=== PATIENT | female | born 1935 | race Asian ===

== ENCOUNTER → 2021-01-17 13:47 | Outpatient (CLI) | payer MEDICARE, OTHER, SELFPAY ==
--- NOTE | 2021-01-17 | DI.CT.S_ITS ---
PROCEDURE: CT SINUS SCREEN WO CON INDICATIONS: Chronic pansinusitis TECHNIQUE: Noncontrast 3.0 mm axial images acquired from the frontal sinuses to the mid-sella, with coronal and sagittal reformats. For radiation dose reduction, the following was used: automated exposure control, adjustment of mA and/or kV according to patient size. COMPARISON: None. FINDINGS: Image quality: Excellent. Maxillary Sinuses: No bony remodeling or destruction. Xoga-ep-rxxaxzir mucosal thickening is seen involving the maxillary sinuses, right worse than left. Ethmoid Air Cells: No bony remodeling or destruction. Moderate mucosal thickening can be seen within the ethmoid air cells, which is most prominent on the right anteriorly Sphenoid Sinuses: No bony remodeling or destruction. Sinuses are clear. Frontal Sinuses: No bony remodeling or destruction. Sinuses are clear. Ostiomeatal Complexes: The ostiomeatal complexes appear demineralized. There constitutionally narrowed, with bilateral Sami cells, right more prominent than left. There further narrowed by soft tissue thickening. Miscellaneous: Visualized intra-orbital contents are normal. No gabriella bullosa or paradoxical turbinate curvature. There is minimal to mild leftward nasal septal deviation. Volume loss can be seen involving the left cerebral hemisphere, as on series 3, image 35. IMPRESSION: Multifocal paranasal sinus disease can be seen. The ostiomeatal complexes are narrowed and demineralized. Apparent remote left cerebral hemisphere infarction. Dictated by: Dewey Solorio M.D. on 01/17/2021 at 13:31 Approved by: Dewey Solorio M.D. on 01/17/2021 at 13:33
== END ==
PROVIDERS: PCP Internal Medicine; Referring Provider Otolaryngology; Visit Provider Otolaryngology
DX: J32.4 Chronic pansinusitis (principal); R51.9 Headache, unspecified; R09.82 Postnasal drip
CPT/HCPCS: 70486

== ENCOUNTER 2022-04-28 12:05 | Emergency (ER) | payer MEDICARE, SELFPAY ==
[2022-04-28 12:13] VITALS: BP 181/77; PULSE 96; RESP 18; TEMP 36.7; O2SAT 96
[2022-04-28 13:35] VITALS: BP 176/79; PULSE 86; RESP 18; O2SAT 94
[2022-04-28 14:00] VITALS: BP 148/66; PULSE 82; RESP 18; O2SAT 95
--- NOTE | 2022-04-28 14:13 | DI.CT.S_ITS ---
PROCEDURE: CT ABDOMEN PELVIS WO CON INDICATIONS: Constipation, eval for obstruction TECHNIQUE: Axial sections were acquired from the lung bases to the pubic symphysis. Coronal and sagittal reformats were performed. For radiation dose reduction, the following was used: automated exposure control, adjustment of mA and/or kV according to patient size. COMPARISON: None. FINDINGS: Image quality: Excellent. Lung bases: Unremarkable. Heart: Enlarged. URINARY: Right Kidney: No stones or hydronephrosis. Right Ureter: No hydroureter. Left Kidney: No stones or hydronephrosis. Left Ureter: No hydroureter. Bladder: Normal wall thickness. No stones. ABDOMEN: Liver: Mild pedis steatosis is present. Gallbladder: Removed. Biliary ducts: Unremarkable. Pancreas: Unremarkable. Spleen: Unremarkable. Adrenal Glands: Unremarkable. Stomach and Bowel: Stomach, small bowel loops, and colon are nonobstructive. Significant colonic stool is present. Peritoneum: No abnormal intraperitoneal fluid. No free air. Ventral Wall: No hernia. Abdominal Nodes: No enlarged retroperitoneal or mesenteric lymph nodes. Vessels: Aorta and inferior vena cava are normal in size. PELVIS: Pelvic Organs: Unremarkable. Pelvic Nodes: Unremarkable. Miscellaneous: No inguinal hernias are seen. Bones: Unremarkable. IMPRESSION: Prominent colonic stool consistent with constipation. No obstruction. Cholecystectomy. Dictated by: Moon Ryan M.D. on 04/28/2022 at 16:36 Approved by: Moon Ryan M.D. on 04/28/2022 at 16:37
--- NOTE | 2022-04-28 14:13 | ED.GENADULT ---
HPI - General Adult General Chief complaint: Abdominal Pain Stated complaint: Constipation Time Seen by Provider: 04/28/22 14:08 Source: patient Mode of arrival: Ambulatory History of Present Illness HPI narrative: 87-year-old female who was sent to the emergency department by her primary doctor for evaluation of constipation. Patient states that she has not had a bowel movement the past 4 days. It appears she has taken 2 different doses of laxatives over this time. She is only had a small bowel movement since then. She does feel like her abdomen is distended. She denies prior history of abdominal surgeries. She does have problems urinating but this is baseline for her. No vomiting. Has generalized abdominal tenderness. Related Data Allergies Allergy/AdvReac Type Severity Reaction Status Date / Time No Known Drug Allergies Allergy Verified 04/28/22 12:22 Review of Systems Constitutional Constitutional: Reports system reviewed and no additional complaints, except as documented Cardiovascular Cardiovascular: Denies chest pain and Denies dyspnea Respiratory Respiratory: Denies dyspnea Gastrointestinal Gastrointestinal: Reports system reviewed and no additional complaints, except as documented Genitourinary Genitourinary: Reports system reviewed and no additional complaints, except as documented Integumentary/Breasts Skin/Breast: Reports system reviewed and no additional complaints, except as documented Hematologic/Lymphatic On Anticoagulants: No Patient History Social History Smoking Status: Never smoker Smoking Status: Never smoker Exam Initial Vital Signs Initial Vital Signs: Vital Signs Temperature 98.1 F 04/28/22 12:13 Pulse Rate 96 H 04/28/22 12:13 Respiratory Rate 18 04/28/22 12:13 Blood Pressure 181/77 H 04/28/22 12:13 Pulse Oximetry 96 04/28/22 12:13 Oxygen Delivery Method 04/28/22 12:13 Const General: cooperative, healthy appearing and comfortable Resp Effort & Inspection: normal respiratory effort Auscultation: clear to auscultation bilaterally Cardio Rate: regular rate Rhythm: regular rhythm GI Inspection: distended Palpation: soft, No firm and No guarding Neuro General: patient alert and patient awake Extrem General: normal to inspection and capillary refill normal Psych Appearance: grossly normal and well kempt Course Orders Ordered: ED Orders 04/28/22 14:13 CT abdomen pelvis wo con Stat Vital Signs Vital signs: Vital Signs - 8 hr 04/28/22 12:13 04/28/22 13:35 04/28/22 13:35 Temperature 98.1 F Pulse Rate 96 H 86 Respiratory Rate 18 18 Blood Pressure 181/77 H 176/79 H Pulse Oximetry 96 94 Oxygen Delivery Method Room Air 04/28/22 14:00 04/28/22 14:00 04/28/22 15:52 Temperature Pulse Rate 82 80 Respiratory Rate 18 18 Blood Pressure 148/66 H 140/66 Pulse Oximetry 95 98 Oxygen Delivery Method Medical Decision Making Imaging Data CT scan - abdomen/pelvis: Radiologist's Impression: [address] [address] [address] Scan Report Signed Patient: Herve Garvey MR#: [id number] : 1935 Acct:[id number] Age/Sex: 87 / F Date of Service: 04/28/22 Loc: ED Accession Number: [id number] ?? Procedure: CT abdomen pelvis wo con Ordering Provider: Geovanni Kelly D.O. PROCEDURE:? CT ABDOMEN PELVIS WO CON ? INDICATIONS:? Constipation, eval for obstruction ? TECHNIQUE:? Axial sections were acquired from the lung bases to the pubic symphysis.? Coronal and sagittal reformats were performed.? For radiation dose reduction, the following was used: ?automated exposure control, adjustment of mA and/or kV according to patient size.? ? COMPARISON:? None. ? FINDINGS:? Image quality:? Excellent.? ? Lung bases:? Unremarkable.? ? Heart:? Enlarged. ? URINARY: Right Kidney: ? No stones or hydronephrosis.? Right Ureter:? No hydroureter.? ? Left Kidney: ? No stones or hydronephrosis. Left Ureter:? No hydroureter.? ? Bladder:? Normal wall thickness. No stones. ? ? ? ABDOMEN: Liver:? Mild pedis steatosis is present. Gallbladder:? Removed.? ? Biliary ducts:? Unremarkable.? ? Pancreas:? Unremarkable.? ? Spleen:? Unremarkable.? ? Adrenal Glands:? Unremarkable.? ? ? Stomach and Bowel:? Stomach, small bowel loops, and colon are nonobstructive.? Significant colonic stool is present. Peritoneum:? No abnormal intraperitoneal fluid.? No free air.? ? Ventral Wall: ? No hernia.? Abdominal Nodes:? No enlarged retroperitoneal or mesenteric lymph nodes.? Vessels:? Aorta and inferior vena cava are normal in size.? ? PELVIS: Pelvic Organs:? Unremarkable.? ? Pelvic Nodes: Unremarkable. Miscellaneous: No inguinal hernias are seen. ? ? ? Bones:? Unremarkable. ? IMPRESSION:? ? Prominent colonic stool consistent with constipation.? No obstruction. ? Cholecystectomy. ? ? Dictated by: Moon Ryan M.D. on 04/28/2022 at 16:36 ? ? Approved by: Moon Ryan M.D. on 04/28/2022 at 16:37?? MDM Narrative Medical decision making narrative: She does have a benign abdominal exam. CT scan shows no signs of surgical pathology. She does have findings that are consistent with constipation. Patient's son arrived at bedside. He states that every so often she does get this way. No indication for admission in the hospital. We did discuss the use of laxatives at home. We discussed return precautions and follow-up instructions. Patient and her son expressed understanding and agreement. Discharge Plan Departure Patient Disposition: Home Clinical Impression: Constipation Instructions: DI for Constipation Activity Restrictions/Additional Instructions: The CT scan today was consistent with constipation. There was no signs of obstructions. I do recommend that you start taking a laxative such as MiraLax. You can take this multiple times a day like we discussed. Contact your primary doctor for a follow-up. Return to the emergency department for any new or worsening season. Referrals: Brennan Zapata MD [Primary Care Provider] - Visit Report Forms: Patient Portal/API
--- NOTE | 2022-04-28 15:51 | PC.NURSE ---
son at bs. 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
[2022-04-28 15:52] VITALS: BP 140/66; PULSE 80; RESP 18; O2SAT 98
== END 2022-04-28 16:53 | disposition home or self-care (01) ==
PROVIDERS: Emergency Provider Emergency Medicine; PCP Internal Medicine
DX: K59.00 Constipation, unspecified (principal)
CPT/HCPCS: 74176; 99283

== ENCOUNTER → 2022-10-18 12:55 | Outpatient (CLI) | payer MEDICARE, SELFPAY ==
--- NOTE | 2022-10-18 | DI.MRI.S_ITS ---
PROCEDURE: MR LUMBAR SPINE WO CON INDICATIONS: spinal stenosis TECHNIQUE: Noncontrast sagittal T1 spin echo and T2 fast echo, sagittal STIR, and T2 fast spin echo through the lumbar spine. In cases with scoliosis, additional coronal T2 fast spin echo may be performed. COMPARISON: None. FINDINGS: Image quality: Excellent. Alignment and Curvature: There is normal bony alignment. Bone Marrow: Marrow is of normal overall signal. No acute vertebral body compression fractures. Spinal Cord: Conus medullaris terminates at the L1 level. Visualized cord demonstrates normal signal and size. Paraspinous Soft Tissues: No paravertebral masses. [id number] cysts are partially imaged in the kidneys bilaterally. There is grade 2 fatty infiltration of the paraspinous musculature. T12-L1: Disc desiccation and mild circumferential disc bulging without significant spinal canal stenosis or neural foraminal narrowing. L1-L2: Mild disc desiccation and circumferential disc bulging without significant spinal canal stenosis or neural foraminal narrowing. L2-L3: Disc desiccation and moderate circumferential disc bulging as well as mild bilateral facet hypertrophy, which result in mild to moderate narrowing of the spinal canal as well as mild to moderate left and mild right neural foraminal narrowing. L3-L4: Disc desiccation and mild circumferential disc bulging with mild bilateral facet hypertrophy and buckling of the ligamentum flavum, which result in moderate narrowing of the spinal canal as well as mild bilateral neural foraminal narrowing. L4-L5: Disc desiccation and loss of disc space height with moderate circumferential disc bulging and, moderate facet hypertrophy, and buckling of the ligamentum flavum, which results and moderate narrowing of the spinal canal as well as moderate left and moderate to severe right neural foraminal narrowing. L5-S1: Mild disc desiccation and njal-kz-pdeuxica bilateral neural foraminal narrowing, which result in mild bilateral neural foraminal narrowing without significant spinal canal stenosis. IMPRESSION: 1. At L4-5, there is moderate to severe right neural foraminal narrowing and moderate left neural foraminal narrowing as well as moderate narrowing of the spinal canal. 2. At L3-4, there is moderate narrowing of the spinal canal and mild bilateral neural foraminal narrowing. 3. Additional multilevel degenerative disc disease and facet hypertrophy as described in detail in the body of the report, resulting in multilevel were-ny-ieyvixwb neural foraminal narrowing and spinal canal stenosis. No high-grade spinal canal stenosis at any level. Approved by: Jamie Torres M.D. on 10/19/2022 at 11:13
== END ==
PROVIDERS: PCP Internal Medicine; Referring Provider Orthopaedic Surgery; Visit Provider Orthopaedic Surgery
DX: M48.062 Spinal stenosis, lumbar region with neurogenic claudication (principal); M51.36 Other intervertebral disc degeneration, lumbar region
CPT/HCPCS: 72148

== ENCOUNTER 2024-11-10 13:44 | Emergency (ER) | payer MEDICARE, SELFPAY ==
[2024-11-10] VITALS (14 sets, daily range): BP systolic 125–154; BP diastolic 60–71; PULSE 85–98; RESP 16–18; TEMP 36.9; O2SAT 93–97
--- NOTE | 2024-11-10 14:01 | DI.RAD.S_ITS ---
PROCEDURE: XR HIP W PEL IF DONE BILAT 2V INDICATIONS: fall, bilateral hip pain TECHNIQUE: AP pelvis with lateral view(s) of the right hip(s). COMPARISON: None. FINDINGS: Bones: No fractures or dislocations. Pelvic ring appears intact. No suspicious bony lesions. Soft tissues: The visualized bowel gas pattern is normal. No suspicious soft tissue calcifications. IMPRESSION: No acute osseous abnormality. If pain persists with conservative management, consider repeat x-ray in 10-14 days or cross-sectional imaging. Dictated by: lBaine Stubbs M.D. on 11/10/2024 at 14:41 Approved by: Blaine Stubbs M.D. on 11/10/2024 at 14:42
--- NOTE | 2024-11-10 14:03 | DI.CT.S_ITS ---
PROCEDURE: CT HEAD/BRAIN WO CON INDICATIONS: fall, unwitnessed, confused TECHNIQUE: Noncontrast 4.5 mm thick angled axial sections acquired from the foramen magnum to the vertex, with coronal and sagittal reformats. For radiation dose reduction, the following was used: automated exposure control, adjustment of mA and/or kV according to patient size. COMPARISON: None. FINDINGS: Image quality: Diagnostic. CSF spaces: Basal cisterns are patent. No extra-axial fluid collections. Ex vacuo dilatation of the left lateral ventricle. Brain: Encephalomalacia within the left frontal lobe. Small lacunar infarct in the left cerebellar hemisphere. No intracranial bleeds or masses. There is cerebral volume loss for age, with resultant ventricular and sulcal prominence. There are periventricular and deep white matter chronic small vessel ischemic changes. There is intracranial internal carotid artery atherosclerosis. Skull and face: Calvarium and visualized facial bones appear intact, without suspicious lesions. Lens replacements. Sinuses: Diffuse paranasal sinus disease with near complete opacification of left maxillary sinus and left sphenoid sinus. The mastoids are clear. IMPRESSION: No acute intracranial pathology. 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 Dictated by: Blaine Stubbs M.D. on 11/10/2024 at 14:36 Approved by: Blaine Stubbs M.D. on 11/10/2024 at 14:38
--- NOTE | 2024-11-10 14:03 | DI.CT.S_ITS ---
PROCEDURE: CT CERVICAL SPINE WO CON INDICATIONS: fall, unwitnessed, confused TECHNIQUE: Noncontrast 3 mm thick sections acquired from the skull base to the T4 level. Sagittal and coronal reformats were then constructed. For radiation dose reduction, the following was used: automated exposure control, adjustment of mA and/or kV according to patient size. COMPARISON: None. FINDINGS: Image quality: Excellent. Bones: No fractures or dislocations. Degenerative changes of the cervical spine. Straightening of the normal cervical lordosis. Decreased osseous mineralization. Visualized superior ribs are intact. Soft tissues: Prevertebral soft tissues are normal in thickness. No paravertebral hematomas. No apical pneumothoraces. Fullness of the bilateral palatine tonsils. IMPRESSION: No displaced fracture or traumatic subluxation. Multilevel degenerative changes of the cervical spine. Fullness of the bilateral palatine tonsils, consider direct visualization. Dictated by: Blaine Stubbs M.D. on 11/10/2024 at 14:38 Approved by: Blaine Stubbs M.D. on 11/10/2024 at 14:41
--- NOTE | 2024-11-10 14:11 | DI.CT.S_ITS ---
PROCEDURE: CT LUMBAR SPINE WO CON INDICATIONS: fall low back pain TECHNIQUE: Noncontrast 3 mm thick sections acquired from the T12 level to the sacrum. Sagittal and coronal reformats were constructed. For radiation dose reduction, the following was used: automated exposure control. COMPARISON: None. FINDINGS: Image quality: Excellent. Bones: Mild levocurvature. No acute vertebral body compression fractures. No suspicious lytic or blastic bony lesions. No pars defects. Multilevel degenerative changes of the lumbar spine with disc height loss, vacuum disc phenomenon, facet arthropathy and osteophytosis. Decreased osseous mineralization. Soft tissues: No retroperitoneal masses or hematomas. Visualized aorta is normal in caliber. Atherosclerotic vascular calcifications. IMPRESSION: No acute osseous abnormalities. Multilevel degenerative changes of the lumbar spine. Dictated by: Blaine Stubbs M.D. on 11/10/2024 at 14:42 Approved by: Blaine Stubbs M.D. on 11/10/2024 at 14:45
--- NOTE | 2024-11-10 14:48 | DI.RAD.S_ITS ---
PROCEDURE: XR CHEST 1V INDICATIONS: fall/?dizzy TECHNIQUE: One view of the chest was acquired. COMPARISON: [facility], CT, CT LUMBAR SPINE WO CON, 11/10/2024, 14:12. [facility], CT, CT KUB, 04/01/2024, 11:57. FINDINGS: Surgical changes and devices: Curvilinear density projecting over the right lower lung field Lungs and pleura: Lungs are clear. No pleural effusions or pneumothorax. Mediastinum: Mediastinal contours appear normal. Heart size is normal. Bones and chest wall: No suspicious bony lesions. Overlying soft tissues appear unremarkable. IMPRESSION: No acute cardiopulmonary abnormality is seen. Dictated by: Blaine Stubbs M.D. on 11/10/2024 at 16:03 Approved by: Blaine Stubbs M.D. on 11/10/2024 at 16:04
--- NOTE | 2024-11-10 14:48 | EKG_ITS ---
[address] [address] Test Date: 2024-11-10 Pat Name: Herve Garvey Department: Room: Gender: Female [employer]: : 1935 Requested By: Order Number: [id number] Reading MD: Howie Gan MD Measurements Intervals [place] Rate: 91 P: -21 NV: 140 QRS: 22 QRSD: 96 T: 24 QT: 356 QTc: 437 Interpretive Statements Normal sinus rhythm Electronically Signed On 11-11-2024 7:44:38 PST by Howie Gan MD
[2024-11-10 15:15] LABS: Alanine Aminotransferase 19 IU/L (<35); Albumin 4.3 g/dL (3.5-5.0); Alkaline Phosphatase 113 U/L (38-126); Aspartate Aminotransferase 23 IU/L (14-36); BUN Creatinine Ratio 31.4 (6-22); Bilirubin Total 0.4 mg/dL (0.2-1.3); Blood Urea Nitrogen 16 mg/dL (7-17); Calcium 9.1 mg/dL (8.4-10.2); Carbon Dioxide 29 mmol/L (22-32); Chloride 95 mmol/L (98-107); Creatine Kinase 35 U/L (30-135); Estimated Glomerular Filt Rate > 60 mL/min (>60); Globulin 4.1 g/dL (1.7-4.1); HEMOLYSIS < 15 (0-50); Lipase 33 U/L (23-300); Potassium 3.7 mmol/L (3.4-5.1); Sodium 131 mmol/L (137-145); Total Protein 8.4 g/dL (6.3-8.2)
[2024-11-10 15:20] LABS: Add Manual Diff / Slide Review NO; Basophils Absolute Auto 100 /uL (0-100); Basophils Percent Auto 0.9 % (0-2); Eosinophils Absolute Auto 100 /uL (0-450); Eosinophils Percent Auto 1.7 % (2-4); Hematocrit 39.3 % (36-46); Hemoglobin 13.7 g/dL (12.0-16.0); Lymphocytes Absolute Auto 1600 /uL (1100-4500); Lymphocytes Percent Auto 18.9 % (25-40); Mean Corpuscular Hemoglobin 32.1 PG (26-34); Mean Corpuscular Volume 91.8 fL (80-100); Monocytes Absolute Auto 500 /uL (0-900); Monocytes Percent Auto 5.7 % (3-14); Neutrophils Absolute Auto 6200 /uL (1500-7000); Neutrophils Percent Auto 72.8 % (50-75); Platelet Count 332 X10^3/uL (150-400); Red Blood Cell Count 4.28 X10^6/uL (4.0-5.2); Red Cell Distribution Width 12.9 % (11.6-14.8); White Blood Cell Count 8.5 X10^3/uL (4.5-11.0)
[2024-11-10 15:23] LABS: Appearance Urine UA CLEAR; Bilirubin Urine UA NEGATIVE (NEGATIVE); Color Urine UA YELLOW; Glucose Urine UA 3+ g/dL (Negative); Ketones Urine UA NEGATIVE (NEGATIVE); Leukocyte Esterase Urine UA NEGATIVE (NEGATIVE); Nitrite Urine UA POSITIVE (Negative); Occult Blood Urine UA NEGATIVE (Negative); Protein Urine UA NEGATIVE (Negative); Specific Gravity Urine UA <=1.005 (1.000-1.035); Urobilinogen Urine UA 0.2 E.U./dL (0.2)
[2024-11-10 15:25] LABS: NT-proBNP (BNP-Adult 18+) 87 pg/mL (<450)
[2024-11-10 15:26] LABS: Glucose 504 mg/dL (80-110)
[2024-11-10 15:28] LABS: Troponin I < 0.012 ng/mL (0.01-0.034)
[2024-11-10 15:33] LABS: pH Urine UA 5.5 (4.5-8.0)
[2024-11-10 15:35] LABS: Amorphous Sediment Urine 1+; Bacteria Urine Many (>30); Culture Indicated Urine Specimen Cultured; RBC Urine None Seen (0-5/HPF); Squamous Epithelial Cell Urine 0-1 /HPF (0-5/HPF); Urine Volume 10mL (spun); WBC Urine 5-10/HPF (0-5/HPF)
[2024-11-10] MEDS: SODIUM CHLORIDE 0.9% 1,000 ML 1000 ML IV (15:49)
--- NOTE | 2024-11-10 16:23 | ED.FALL ---
HPI - Fall General Chief Complaint: Fall Stated Complaint: Fall, px in lower back Time Seen by Provider: 11/10/24 14:11 Source: patient, family (son), RN notes reviewed and old records reviewed Limitations: no limitations and language barrier History of Present Illness HPI Narrative: 89-year-old female with a history of diabetes with unwitnessed fall between around 5:00 p.m. last night. Patient lives with 2 of her sons. Patient was in the kitchen was cooking fell backwards onto her buttocks and felt a crack in her back is unsure if she hit her head but denies any loss of consciousness. Denies any headache or neck pain currently. She denies any sudden vision changes no chest pain or shortness of breath. Denies any nausea or vomiting. No new GI or urinary symptoms. Patient has not had any chest pain or shortness of breath. She has been ambulating since this happened. Her son who is at bedside states he had talked to his brother's this morning they indicated that she had had a fall so she he went over to see her her in to be evaluated she was not had persistent pain regularly but notes some discomfort in her lower back. She denies any neck or back pain currently. She notes it seems to occur when she bends over. Patient has not had any weakness or numbness or tingling in extremity since. Patient is on metformin she was supposed to take 500 mg p.o. b.i.d. but son states they recently found out she was has been taking it once daily. She has been on this medication for about 10 years. No prior surgeries. No known drug allergies. No tobacco, alcohol or recreational drugs was seeing Dr. Zapata but recently switched to primary care at a clinic and [facility] has not been seen or had labs for at least a couple of months if not longer. Related Data Previous Rx's Medication Instructions Recorded cephalexin 500 mg capsule 500 mg PO Q8H 5 days #15 caps 11/10/24 Allergies Allergy/AdvReac Type Severity Reaction Status Date / Time No Known Drug Allergies Allergy Verified 04/28/22 12:22 Review of Systems Review of Systems ROS Unobtainable: All systems reviewed & are unremarkable except as noted in HPI and below Patient History Social History Smoking Status: Never smoker Smoking Status: Never smoker Exam Narrative Exam Narrative: GEN: well nourished, well appearing female, alert and oriented x 3, patient appears to be in mild distress. HEENT: Atraumatic, pupils are equal round reactive to light, extraocular movements are intact, nares are clear, there is no conjunctival pallor. Throat is clear without any exudates, erythema, tonsillar enlargement or uvular deviation HEART: Regular rate and rhythm without murmur, clicks, rubs. Pulses are equal in upper and lower extremities LUNGS:Lungs clear to auscultation, no wheezes, rales, crackles, chest moves symmetrically ABD:bowel sounds normal, soft, non-tender, no guarding, rebound, rigidity, no masses noted, no hepatosplenomegaly :No CVA tenderness BACK: No cervical, thoracic or lumbar vertebral point tenderness. Patient has normal range of motion. MSCL: Non-tender, no muscle atrophy, muscles strength 5/5 upper and lower extremities, full range of motion NEURO:CN 2-12 intact, sensation normal in all 4 extremities. SKIN: No ecchymosis, skin tears or abrasions appreciated. Initial Vital Signs Initial Vital Signs: Vital Signs Pulse Rate 95 H 11/10/24 13:54 Blood Pressure 148/67 H 11/10/24 13:54 Pulse Oximetry 96 11/10/24 13:54 Course Orders Ordered: ED Orders 11/10/24 14:01 XR hip w pel if done BILAT 2V Stat 11/10/24 14:03 CT cervical spine wo con Stat CT head/brain wo con Stat 11/10/24 14:11 CT lumbar spine wo con Stat 11/10/24 14:30 Urinalysis and Microscopic Stat Urine Culture Stat 11/10/24 14:48 XR chest 1V Stat EKG-12 Lead Stat 11/10/24 14:57 Complete Blood Count AUTO DIFF Stat Comprehensive Metabolic Panel Stat Hemoglobin A1C% w Est Avg Glu Stat Ketones (Beta-Hydroxybutyrate) Stat Lipase Stat NT-proBNP (BNP-Adult 18+) Stat Troponin & CK Cardiac Panel Stat 11/10/24 16:52 VBG [Venous Blood Gas] DAILY 11/10/24 17:11 Venous Blood Gas Routine Discontinued Medications Sodium Chloride (Normal Saline 0.9%) 1,000 mls @ 1,000 mls/hr IV BOLUS ONE Stop: 11/10/24 16:24 Last Infusion: 11/10/24 17:10 Dose: Infused Documented By: Admin: 11/10/24 15:49 Dose: 1,000 mls/hr Documented By: JAG Ceftriaxone Sodium 1,000 mg/ (Sodium Chloride) 100 mls @ 200 mls/hr IV NOW ONE Stop: 11/10/24 16:53 Last Infusion: 11/10/24 17:55 Dose: Infused Documented By: Admin: 11/10/24 17:10 Dose: 200 mls/hr Documented By: JAG Vital Signs Vital signs: Vital Signs - 8 hr 11/10/24 13:54 11/10/24 13:54 11/10/24 13:56 Temperature 98.4 F Pulse Rate 95 H 96 H Respiratory Rate 16 Blood Pressure 148/67 H 148/67 H Pulse Oximetry 96 97 Oxygen Delivery Method Room Air 11/10/24 14:00 11/10/24 14:24 11/10/24 14:24 Temperature Pulse Rate 92 H 98 H Respiratory Rate Blood Pressure 146/66 H Pulse Oximetry 93 93 Oxygen Delivery Method 11/10/24 15:01 11/10/24 15:05 11/10/24 15:05 Temperature Pulse Rate 90 88 Respiratory Rate 16 Blood Pressure 131/63 Pulse Oximetry 95 96 Oxygen Delivery Method 11/10/24 15:30 11/10/24 15:30 11/10/24 16:00 Temperature Pulse Rate 90 88 Respiratory Rate 17 Blood Pressure 125/71 Pulse Oximetry 97 97 Oxygen Delivery Method Room Air 11/10/24 16:00 11/10/24 16:30 11/10/24 16:30 Temperature Pulse Rate 85 Respiratory Rate Blood Pressure 129/60 130/60 Pulse Oximetry 97 Oxygen Delivery Method Room Air 11/10/24 17:00 11/10/24 17:00 11/10/24 17:30 Temperature Pulse Rate 87 93 H Respiratory Rate Blood Pressure 154/70 H Pulse Oximetry 97 Oxygen Delivery Method Room Air 11/10/24 17:31 11/10/24 17:31 11/10/24 18:02 Temperature Pulse Rate 95 H 89 Respiratory Rate 17 Blood Pressure 133/64 Pulse Oximetry Oxygen Delivery Method 11/10/24 18:02 11/10/24 18:30 11/10/24 18:30 Temperature Pulse Rate 87 Respiratory Rate 18 Blood Pressure 141/63 H 126/61 Pulse Oximetry 95 Oxygen Delivery Method MDM - Fall Lab Data 11/10/24 14:57 11/10/24 14:57 Labs: Lab Results 11/10/24 11/10/24 11/10/24 Range/Units 14:30 14:57 17:11 WBC 8.5 (4.5-11.0) X10^3/uL RBC 4.28 (4.0-5.2) X10^6/uL Hgb 13.7 (12.0-16.0) g/dL Hct 39.3 (36-46) % MCV 91.8 (80-100) fL MCH 32.1 (26-34) PG MCHC 35.0 (30-36) % RDW 12.9 (11.6-14.8) % Plt Count 332 (150-400) X10^3/uL Neut % (Auto) 72.8 (50-75) % Lymph % (Auto) 18.9 L (25-40) % [place] % (Auto) 5.7 (3-14) % Eos % (Auto) 1.7 L (2-4) % Baso % (Auto) 0.9 (0-2) % Neut # (Auto) 6200 (9988-6197) /uL Lymph # (Auto) 1600 (0257-5400) /uL [place] # (Auto) 500 (0-900) /uL Eos # (Auto) 100 (0-450) /uL Baso # (Auto) 100 (0-100) /uL VBG pH 7.36 (7.33-7.43) VBG pCO2 44.6 L (45-50) mmHg VBG pO2 24 L (35-45) mmHg VBG HCO3 25 (24-28) mmol/L VBG Total CO2 24 (24-29) mmol/L VBG O2 Saturation 40 L (70-75) % VBG Base Excess -0.6 L (0-4) mmol/L Sodium 131 L (137-145) mmol/L Potassium 3.7 (3.4-5.1) mmol/L Chloride 95 L (98-107) mmol/L Carbon Dioxide 29 (22-32) mmol/L BUN 16 (7-17) mg/dL Creatinine 0.51 L (0.52-1.04) mg/dL Estimated GFR > 60 (>60) mL/min BUN/Creatinine Ratio 31.4 H (6-22) Glucose 504 H* (80-110) mg/dL Hemoglobin A1c > 14.0 H (4.0-6.0) % Calcium 9.1 (8.4-10.2) mg/dL Total Bilirubin 0.4 (0.2-1.3) mg/dL AST 23 (14-36) IU/L ALT 19 (<35) IU/L Alkaline Phosphatase 113 (38-126) U/L Total Creatine Kinase 35 (30-135) U/L Troponin I < 0.012 (0.01-0.034) ng/mL NT-Pro-B Natriuret Pep 87 (<450) pg/mL Total Protein 8.4 H (6.3-8.2) g/dL Albumin 4.3 (3.5-5.0) g/dL Globulin 4.1 (1.7-4.1) g/dL Albumin/Globulin Ratio 1.0 (1.0-2.8) Lipase 33 (23-300) U/L Urine Color Yellow Urine Appearance Clear Urine pH 5.5 (4.5-8.0) Ur Specific [place] <=1.005 (1.000-1.035) Urine Protein Negative (Negative) Urine Glucose (UA) 3+ H (Negative) g/dL Urine Ketones Negative (NEGATIVE) Urine Occult Blood Negative (Negative) Urine Nitrate Positive H (Negative) Urine Bilirubin Negative (NEGATIVE) Urine Urobilinogen 0.2 (0.2) E.U./dL Ur Leukocyte Esterase Negative (NEGATIVE) Urine RBC None seen (0-5/HPF) Urine WBC 5-10/hpf H (0-5/HPF) Ur Squamous Epith Cells 0-1 /hpf (0-5/HPF) Amorphous Sediment 1+ Urine Bacteria Many (>30) H (None) Urine Yeast 5-10/hpf H (None) Ur Culture Indicated? Specimen cultured Vol Urine Centrifuged 10ml (spun) Ketones 0.18 (<0.27) mmol/L Point of Care Testing Glucose POC 324 ECG Data Attestation: I personally reviewed and interpreted this ECG as follows: Prior ECG tracings: not available for review Interpretation: Sinus rhythm rate of 91 [place] 140 QRS of 96 QTC of 437 no prior for comparison. MDM Narrative Medical decision making narrative: 89-year-old female known diabetic patient reported have language barrier by a nursing but son is at bedside and patient is able to answer questions quite well with the occasional problems from the son. She was able to converse with myself. Suspect patient had mechanical fall although unclear she remembers stepping back and falling backwards does not believe she hit her head denies any loss of consciousness. She was does not take any anticoagulants based on extremity of age she does also has complaint of low back discomfort particularly when bending over head CT and cervical spine were obtained as well as lumbar spine CT. She has been ambulating since this occurred. She had labs drawn shows a glucose of 504. Patient has known diabetes but has been taking only 500 mg metformin daily instead of her usual b.i.d. unclear exactly how long she has been doing that for what sounds like some time. Does not appear to be in DKA vitals are overall fairly appropriate. She was also found to have a UTI and workup today. Was given a dose of antibiotic here in the department. 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 CT cervical spine shows no displaced fracture or traumatic subluxation multilevel degenerative changes cervical spine fullness of bilateral palatine tonsils Lumbar spine shows no acute osseous abnormalities multilevel degenerative changes of the lumbar spine. Hip x-ray is negative for acute abnormality. Chest x-ray shows no acute change. Labs show a CBC with a white count of 8.5 hemoglobin of 39 platelets of 332. Chemistry shows sodium 131 potassium 3.7 chloride 95 CO2 of 29 BUN 16 creatinine of 0.51 glucose of 504 LFTs are negative troponins less than 0.012. Anion gap of 7, VBG shows pH of 7.35 pCO2 of 44 PO2 of 24 with a bicarb of 25. Ketones is negative. Hemoglobin A1c greater than 14 UA shows nitrate positive urine negative for leukocyte esterase 5-10 white cells no red cells, many bacteria 5-10 yeast 3+ glucose. Sent for culture EKG shows a rate of 91 [place] 140 QRS of 96 QTC of 437, no acute ST changes. No priors for comparison. Patient received fluids, glucose was rechecked and is improved at 326. Patient also received Rocephin for UTI. Plan for patient to return to increase her metformin to a 1000 mg or 2 tablets twice daily she has been only taking 500 mg once daily but was actually prescribed take it twice daily. And follow up with primary care she may need adjustment of her medications further. Discussed with son her A1c is quite high suspect she may need some additional medication management but she is responded nicely to fluids here in the department. We will also treat with oral antibiotics for UTI with return precautions. Patient has had no other complaints she was ambulating well in the department she does have a primary care she can follow up with the [place]. Was given a copy of her labs strict return precautions and all questions answered. Discharge Plan Departure Patient Disposition: Home Clinical Impression: UTI (urinary tract infection), Hyperglycemia Instructions: DI for Hyperglycemia -- Adult Activity Restrictions/Additional Instructions: Your workup today shows UTI but also hyperglycemia or elevated glucose. Please follow up with your physician to have recheck in the next week. Please call tomorrow to set up an appointment for recheck and adjustment of your medications. Your hemoglobin A1c today is greater than 14, share this information with your physician you will most likely need further adjustment of your medications. A copy of your labs is included please give these to your physician. Please use your glucometer at home to check your glucose and keep a log at least once daily until you see your physician. Take oral antibiotics until completed. Prescription sent to [facility] in [place]. Please increase your metformin to a 1000 mg (2 tablets) p.o. b.i.d. You can take acetaminophen up to a 1000 mg every 6 hours as needed for pain. Please return for severe headaches, new chest pain or shortness of breath, lightheadedness or passing out, increasing dizziness or weakness, loss of bowel or bladder control, new numbness tingling or weakness of extremities or other new or concerning changes. Prescriptions: New cephalexin 500 mg capsule 500 mg PO Q8H 5 Days Qty: 15 0RF Referrals: Miscellaneous,Doctor, [Primary Care Provider] - Stand Alone Forms: Patient Portal/API/Survey
[2024-11-10] MEDS: cefTRIAXone 1,000 MG in SODIUM CHLORIDE 0.9% 100 ML 200 MG IV (17:10)
[2024-11-10 17:16] LABS: Base Excess VBG -0.6 mmol/L (0-4); HCO3 VBG 25 mmol/L (24-28); Oxygen Saturation VBG 40 % (70-75); PCO2 VBG 44.6 mmHg (45-50); PO2 VBG 24 mmHg (35-45); Total CO2 VBG 24 mmol/L (24-29); pH VBG 7.36 (7.33-7.43)
--- NOTE | 2024-11-10 17:18 | PC.NURSE ---
1705: Provider Nellie RODRIGUEZ with no blood cultures at this time.
[2024-11-10 17:26] LABS: Hemoglobin A1C% w Est Avg Glu > 14.0 % (4.0-6.0)
[2024-11-10 17:38] LABS: Ketones (Beta-Hydroxybutyrate) 0.18 mmol/L (<0.27)
== END 2024-11-10 19:06 | disposition home or self-care (01) ==
PROVIDERS: Emergency Provider Emergency Medicine
DX: N39.0 Urinary tract infection, site not specified (principal); M54.50 Low back pain, unspecified; R41.0 Disorientation, unspecified; E11.65 Type 2 diabetes mellitus with hyperglycemia; T38.3X6A Underdosing of insulin and oral hypoglycemic [antidiabetic] drugs, initial encounter; W18.30XA Fall on same level, unspecified, initial encounter; Z79.4 Long term (current) use of insulin; Z79.84 Long term (current) use of oral hypoglycemic drugs
CPT/HCPCS: 36415; 70450; 71045; 72125; 72131; 73521; 80053; 81001; 82009; 82550; 82805; 82962; 83036; 83690; 83880; 84484; 85025; 87077; 87086; 87186; 93005; 93010; 96361; 96365; 99284; J0696

== ENCOUNTER → 2024-11-13 11:27 | Outpatient (CLI) | payer MEDICARE, SELFPAY ==
[2024-11-13 13:02] LABS: BUN Creatinine Ratio 22.4 (6-22); Blood Urea Nitrogen 11 mg/dL (7-17); Calcium 9.4 mg/dL (8.4-10.2); Carbon Dioxide 27 mmol/L (22-32); Chloride 101 mmol/L (98-107); Cholesterol 150 mg/dL (140-199); Estimated Glomerular Filt Rate > 60 mL/min (>60); Glucose 243 mg/dL (80-110); HDL Cholesterol 43 mg/dL (40-60); HEMOLYSIS < 15 (0-50); LDL Cholesterol Calculated 83 mg/dL (<100); Potassium 4.4 mmol/L (3.4-5.1); Sodium 135 mmol/L (137-145); Triglycerides 122 mg/dL (35-150)
[2024-11-13 13:33] LABS: TSH w/ Reflex to FT4 1.15 uIU/mL (0.47-4.68)
[2024-11-13 13:49] LABS: Vitamin B12 761 pg/mL (239-931)
== END ==
PROVIDERS: PCP Nurse Practitioner Family; Referring Provider Nurse Practitioner Family; Visit Provider Nurse Practitioner Family
DX: Z13.220 Encounter for screening for lipoid disorders (principal); I10 Essential (primary) hypertension; R73.9 Hyperglycemia, unspecified; E11.9 Type 2 diabetes mellitus without complications; N39.0 Urinary tract infection, site not specified; G62.9 Polyneuropathy, unspecified
CPT/HCPCS: 36415; 80048; 80061; 82607; 84443

== ENCOUNTER → 2024-12-17 13:51 | Outpatient (CLI) | payer MEDICARE, SELFPAY ==
--- NOTE | 2025-01-08 14:16 | DIAB.MNT ---
Initial Diabetes Medical Nutrition Therapy Assessment Name: Herve Gavrey Date: 12/17/24 Time: 210-310p Dx: Type II Diabetes Preferred Learning Style: Listening, Watching Herve presents for initial visit accompanied by her daughter in law, Susi. Reports DM dx for 10 years. Recent hga1c >14 with BG of 504mg/dl in 11/2024. Susi wants to know how they can help cook better foods for her. She does live in a different household though with her other son. Wants to know what diabetes is, why her feet may be tingling, and if dry skin is assoc with DM. Overdue for eye appt Not taking full dose Metformin, as rx'd. Diet Recall: 8a: bread with butter, likes milk with a little juice mixed in L: leftovers-- 1c noodles with veggies and 1-2 oz meat sn: low sugar cookie D: 1/2-1c brown rice, soup, veggies, little bit of fish sn: juice or fruit water coffee with milk sf juice Never use to like sweets but now the last three years has sweet craving. Likes low sugar Serbian yogurt Anthropometrics: Ht: 5' Wt: 127# Physical Activity: No program Self-Monitoring Blood Glucose: Wears CGM and reports it is beeping all the time especially after eating. Susi reports FBG usually 100-200, sometimes <100. Did not bring patient financial counselor for review today. Diabetes Medications: 2.5mg Glipizide 1000mg Metformin BID-- only taking 500mg/d Pertinent Labs: HgA1c: >14% 11/2024 glucose 504 mg/dl 11/2024 Past Medical History: (Last Updated 11/26/24 @ 11:08 by Julia Garnett, [facility]) Hypertension Neuropathy Numbness and tingling of both feet Nutrition Rx: Carbohydrates: Meal:30-45g Snack:15-30g Nutrition Diagnosis: - Nutrition and food related knowledge deficit r/t no recent MNT or DM ed aeb pt report - Predicted inadequate protein intake r/t limited acceptance for meat aeb pt report and diet recall Intervention: This participant was very receptive. Provided appropriate educational handouts. Discussed the following topics: Completed intake assessment. Discussed barriers to care. Pathophysiology of T2DM HgA1c, its correlation to blood glucose numbers, and rationale for goal Plate Method, impact of macronutrients on blood sugar, meal timing, pairing macronutrients and spreading out carbohydrates for better blood glucose management Recommended servings for carbohydrates at meals and snacks Metformin rx and titration and potential SE Proteins she likes Reducing risks of DM: eyes, neuropathy Created SMART goals for patient self-care and success. Goals: Bring CGM patient financial counselor next visit Make eye appt Titrate Metformin up slowly over the next two weeks Take Metformin with food Make tofu Follow-up: ABHILASH MCCARTY follow-up in 2-3 weeks Erika Pereira RDN, [facility] Certified Diabetes Care and Investigation Manager P: [phone] Thank you for this referral
== END ==
PROVIDERS: PCP Nurse Practitioner Family; Referring Provider Nurse Practitioner Family
DX: E11.42 Type 2 diabetes mellitus with diabetic polyneuropathy (principal); T38.3X6A Underdosing of insulin and oral hypoglycemic [antidiabetic] drugs, initial encounter; Z79.84 Long term (current) use of oral hypoglycemic drugs; Z71.3 Dietary counseling and surveillance
CPT/HCPCS: 97802

== ENCOUNTER → 2025-01-08 15:15 | Outpatient (CLI) | payer MEDICARE, SELFPAY ==
--- NOTE | 2025-02-13 14:22 | DIAB.MNTFU ---
Follow-up Diabetes Medical Nutrition Therapy Assessment Name: Herve Garvey Date: 01/08/25 Time: 340-430p Dx: Type II Diabetes Herve presents for follow-up visit accompanied by her daughter in law, Susi. Reports DM dx for 10 years. Reports taking Metformin as rx'd now without SE, though not eating with doses. Drinking regular juice TID, despite conversations about d/c of juice last visit. Limited water intake with 16.9oz per day. Has eye appt next week. States her CGM alarm is going off excessively, likely r/t excessive time >250mg/dl. States it goes off every time she eats. Anthropometrics: Ht: 5' Wt: 127# Physical Activity: No program Self-Monitoring Blood Glucose: Low time in range and excessive time of hyperglycemia. TIR: 28% very high 40% high 32% in range 0% low or very low avmg/dl GMI: 8.4% std dev: 55mg/dl variation: 25.7% Diabetes Medications: 2.5mg Glipizide 1000mg Metformin BID Pertinent Labs: HgA1c: >14% 11/2024 glucose 504 mg/dl 11/2024 Past Medical History: (Last Updated 11/26/24 @ 11:08 by JULIANA Momin-) Hypertension Neuropathy Numbness and tingling of both feet Nutrition Rx: Carbohydrates: Meal:30-45g Snack:15-30g Nutrition Diagnosis: - Nutrition and food related knowledge deficit r/t no recent MNT or DM ed aeb pt report - Predicted inadequate protein intake r/t limited acceptance for meat aeb pt report and diet recall - in progress - Excessive CHO intake r/t undesireable beverage choices aeb report of juice intake- new Intervention: This participant was very receptive. Provided appropriate educational handouts. Discussed the following topics: Impact of juice on BG Changed bulk receiver alarms to reduce alarm fatigue Medication Options Carb portions and protein recs Created SMART goals for patient self-care and success. Goals: Bring CGM bulk receiver next visit- met Make eye appt- met Titrate Metformin up slowly over the next two weeks - met Take Metformin with food- not met Make tofu- met Avoid juice- new Aim for 2 water bottles per day- new Write down food intake- new Follow-up: ABHILASH MCCARTY follow-up in 2-3 weeks Erika Pereira RDN, [facility] Certified Diabetes Care and Certified Nursing Assistant P: [phone] Thank you for this referral
== END ==
PROVIDERS: PCP Nurse Practitioner Family; Referring Provider Nurse Practitioner Family
DX: E11.65 Type 2 diabetes mellitus with hyperglycemia (principal); Z79.84 Long term (current) use of oral hypoglycemic drugs; Z71.3 Dietary counseling and surveillance
CPT/HCPCS: 97803

== ENCOUNTER → 2025-01-29 10:11 | Outpatient (CLI) | payer MEDICARE, SELFPAY ==
--- NOTE | 2025-01-29 10:13 | DI.US.S_ITS ---
PROCEDURE: US PERIPH VENOUS LOW EXTREM RT INDICATIONS: R/O DVT TECHNIQUE: Real-time imaging, as well as color and pulse Doppler interrogation, were performed of the lower extremity deep veins from the inguinal ligament to the popliteal fossa, with documentation of the visualized calf veins. COMPARISON: None. FINDINGS: The common femoral, femoral, popliteal, and the visualized calf veins are normally compressible, and free of intraluminal thrombus. Color and pulse Doppler demonstrate normal phasic intraluminal flow. There is normal augmentation response to distal compression maneuver. IMPRESSION: No findings of DVT in visualized right lower extremity veins. Dictated by: Reed Travis M.D. on 01/29/2025 at 11:23 Approved by: Reed Travis M.D. on 01/29/2025 at 11:27
== END ==
PROVIDERS: PCP Nurse Practitioner Family; Referring Provider Nurse Practitioner Family; Visit Provider Nurse Practitioner Family
DX: E11.9 Type 2 diabetes mellitus without complications (principal); M79.604 Pain in right leg
CPT/HCPCS: 93971

== ENCOUNTER → 2025-01-29 11:11 | Outpatient (CLI) | payer MEDICARE, SELFPAY ==
--- NOTE | 2025-02-13 14:29 | DIAB.FU ---
Follow-up Diabetes Education Assessment Name: Herve Garvey Date: 01/29/25 Time: 1110a-12p Dx: Type II Diabetes Herve presents for follow-up visit accompanied by her daughter in law, Susi. Reports DM dx for 10 years. Reports she is now UTD on eye appt and no concerns reported. Does not want to take another medication for DM, however BG continues to be consistently elevated. Has been drinking a bit more water, 1.5 water botles per day Still having juice TID x 8oz More tofu lately using brown rice in 0.5-1c portions, as recommended. sometimes cookies/biscuit x 5 ea. Endorses poor sleep with worries before bed. States there are worries she has about getting things done prior to end of life that keep her awake. Anthropometrics: Ht: 5' Wt: 127# Physical Activity: No program Self-Monitoring Blood Glucose: Low time in range and excessive time of hyperglycemia. Hyperglycemia >250mg/dl has increased from last visit. TIR: 50% very high 26% high 24% in range 0% low or very low avmg/dl GMI: 9.3% std dev: 72mg/dl variation: 29.1% Last TIR: 28% very high 40% high 32% in range 0% low or very low avmg/dl GMI: 8.4% std dev: 55mg/dl variation: 25.7% Diabetes Medications: 2.5mg Glipizide 1000mg Metformin BID Pertinent Labs: HgA1c: >14% 11/2024 glucose 504 mg/dl 11/2024 Past Medical History: (Last Updated 11/26/24 @ 11:08 by Julia Garnett [facility]) Hypertension Neuropathy Numbness and tingling of both feet Intervention: This participant was very receptive. Provided appropriate educational handouts. Discussed the following topics: Impact of juice on BG Balancing quality of life and DM management Strategies for better sleep Protein foods she enjoys Medication Options Created SMART goals for patient self-care and success. Goals: Avoid juice- not met Aim for 2 water bottles per day- improved Write down food intake- met Write down worries before bed- new Avoid juice- continue Follow-up: ABHILASH MCCARTY follow-up in 3-4 weeks Erika Pereira RDN, [facility] Certified Diabetes Care and Consolidation Accountant P: [phone] Thank you for this referral
== END ==
PROVIDERS: PCP Nurse Practitioner Family; Referring Provider Nurse Practitioner Family
DX: E11.42 Type 2 diabetes mellitus with diabetic polyneuropathy (principal); Z71.3 Dietary counseling and surveillance; Z79.84 Long term (current) use of oral hypoglycemic drugs
CPT/HCPCS: G0108

== ENCOUNTER → 2025-02-09 09:14 | Outpatient (CLI) | payer MEDICARE, SELFPAY ==
[2025-02-09 10:48] LABS: Hemoglobin A1C% w Est Avg Glu 8.4 % (4.0-6.0)
[2025-02-09 11:06] LABS: BUN Creatinine Ratio 28.3 (6-22); Blood Urea Nitrogen 17 mg/dL (7-17); Calcium 9.4 mg/dL (8.4-10.2); Carbon Dioxide 26 mmol/L (22-32); Chloride 102 mmol/L (98-107); Estimated Glomerular Filt Rate > 60 mL/min (>60); Glucose 153 mg/dL (80-110); HEMOLYSIS < 15 (0-50); Sodium 138 mmol/L (137-145)
[2025-02-09 11:36] LABS: Creatinine Urine Random 46.74 mg/dL
[2025-02-09 11:43] LABS: Microalbumin Urine Random 1.7 mg/dL (0-1.6)
== END ==
PROVIDERS: PCP Nurse Practitioner Family; Referring Provider Nurse Practitioner Family; Visit Provider Nurse Practitioner Family
DX: E11.9 Type 2 diabetes mellitus without complications (principal); I10 Essential (primary) hypertension
CPT/HCPCS: 36415; 80048; 82043; 82570; 83036

== ENCOUNTER → 2025-02-18 13:27 | Outpatient (CLI) | payer MEDICARE, SELFPAY ==
--- NOTE | 2025-03-10 09:25 | DIAB.MNTFU ---
Follow-up Diabetes Medical Nutrition Therapy Assessment Name: Herve Garvey Date: 02/18/25 Time: 135-220 Dx: Type II Diabetes Herve presents for follow-up visit accompanied by her daughter in law, Susi. Reports DM dx for 10 years. Great improvement in hgA1c with 8.4%. Endorses takign DM meds. Reports continued juice intake about 16oz per day, may or may not be sf. Endorses higher fruit intake in one sitting, ie 5 tangerines. Daughter in law has questions regarding local low sugar bakery. Drinking more water. RD concerned for hyperglycemia vs quality of life and her enjoying foods she likes. Would rec avoiding overly restricting food, but encouraging well managed BG at the same time. RD messaged PCP in regards to goals for this patient. Anthropometrics: Ht: 5' Wt: 127# Physical Activity: No program Self-Monitoring Blood Glucose: Similar TIR as last visit. Slight improvement. TIR: 48% very high 27% high 25% in range 0% low or very low avmg/dl GMI: 9.3% std dev: 73mg/dl variation: 29.3% Last TIR: 50% very high 26% high 24% in range 0% low or very low avmg/dl GMI: 9.3% std dev: 72mg/dl variation: 29.1% Diabetes Medications: 2.5mg Glipizide 1000mg Metformin BID Pertinent Labs: HgA1c: >14% 11/2024 8.4% 02/2025 glucose 504 mg/dl 11/2024 Past Medical History: (Last Updated 11/26/24 @ 11:08 by Julia Garnett [facility]) Hypertension Neuropathy Numbness and tingling of both feet Nutrition Rx: Carbohydrates: Meal:30-45g Snack:15-30g Nutrition Diagnosis: - Nutrition and food related knowledge deficit r/t no recent MNT or DM ed aeb pt report - improved - Predicted inadequate protein intake r/t limited acceptance for meat aeb pt report and diet recall - improved - Excessive CHO intake r/t undesireable beverage choices aeb report of juice intake- in progress Intervention: This participant was very receptive. Provided appropriate educational handouts. Discussed the following topics: Impact of juice on BG Balancing quality of life and DM management beverage options Speading CHO out durin the day Created SMART goals for patient self-care and success. Goals: Write down worries before bed- not met Avoid juice- continue 2 water bottles per day- met Try lemon in water- new Drink sf beverages instead of juice- new Follow-up: ABHILASH MCCARTY follow-up in 3-4 weeks Erika Pereira RDN, [facility] Certified Diabetes Care and Associate Professor Of Psychology P: [phone] Thank you for this referral
== END ==
LOC: DIET 13:27
PROVIDERS: PCP Nurse Practitioner Family; Referring Provider Nurse Practitioner Family
DX: E11.42 Type 2 diabetes mellitus with diabetic polyneuropathy (principal); Z79.84 Long term (current) use of oral hypoglycemic drugs; Z71.3 Dietary counseling and surveillance
CPT/HCPCS: 97803

== ENCOUNTER → 2025-03-23 15:04 | Outpatient (CLI) | payer MEDICARE, SELFPAY ==
--- NOTE | 2025-03-23 15:08 | DI.US.S_ITS ---
PROCEDURE: US VENOUS INSUFFICIENCY BILAT INDICATIONS: SWELLING LE/NUMBNESS/TINGLING BOTH FEET/NEUROPATHY TECHNIQUE: Real time scanning was performed of the lower extremity venous system, with imaging documentation, as well as Color and pulse Doppler interrogation. COMPARISON: None. FINDINGS: RIGHT LOWER EXTREMITY: The deep veins are normally compressible, and free of intraluminal thrombus. Color and pulse Doppler demonstrate normal intravascular flow. There is normal augmentation with distal compression maneuver. Deep venous reflux is present in the common femoral vein measuring 1.7 seconds. Greater saphenous vein (GSV): Remote stripping. There is a medial venous structure present in the medial mid right thigh extending to the calf region, potentially emanating from neovascularity related to previous vein stripping surgery. The structure is tiny caliber, measuring 2 mm, and has reflux measuring up to 1.6 seconds. Small saphenous vein (SSV): Question previous ligation near the saphenopopliteal junction. In the mid calf it is patent, measuring 3 mm in diameter, with prolonged reflux measuring 6 seconds. 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 Varicosities are present throughout the calf. LEFT LOWER EXTREMITY: The deep veins are normally compressible, and free of intraluminal thrombus. Color and pulse Doppler demonstrate normal intravascular flow. There is normal augmentation with distal compression maneuver. Greater saphenous vein (GSV): Remote vein stripping surgery. Small saphenous vein (SSV): 4 mm diameter with prolonged reflux measuring 1.1 seconds. Varicose veins are present in the proximal calf and mid calf. IMPRESSION: 1. Remote bilateral vein stripping surgery involving the greater saphenous veins. 2. Question previous ligation of the right short saphenous vein near the junction. 3. The left short saphenous vein is somewhat dilated, and has prolonged reflux measuring 1.1 seconds. 4. Bilateral varicosities are noted. 5. Demonstration of a right calf beef cattle specialist with prolonged reflux. Dictated by: Juan Carlos Wilcox M.D. on 03/24/2025 at 9:56 Approved by: Juan Carlos Wilcox M.D. on 03/24/2025 at 10:02
== END ==
LOC: US 15:06
PROVIDERS: PCP Nurse Practitioner Family; Referring Provider Nurse Practitioner Family; Visit Provider Nurse Practitioner Family
DX: I83.893 Varicose veins of bilateral lower extremities with other complications (principal); M79.89 Other specified soft tissue disorders; R20.0 Anesthesia of skin; R20.2 Paresthesia of skin; G62.9 Polyneuropathy, unspecified
CPT/HCPCS: 93970

== ENCOUNTER → 2025-03-27 10:52 | Outpatient (CLI) | payer MEDICARE, SELFPAY ==
--- NOTE | 2025-03-31 14:08 | DIAB.FU ---
Follow-up Diabetes Education Assessment Name: Herve Garvey Date: 03/27/25 Time: Dx: Type II Diabetes Herve presents for follow-up visit accompanied by her daughter in law, Susi. Reports DM dx for 10 years. UTD on eye appt Declining dental appts at this time. Wears slippers with a sole. has not been drinking juice, choosing sf carbonated beverage instead Eating less fruit in a sitting, down to 3 tangerines vs 5 Eating tofu, eggs, nuts for protein has questions about whether she can eat noodles or sweets in moderation. Endorses taking Dm meds as rx'd. Physical Activity: No program Self-Monitoring Blood Glucose: Similar TIR as last visit. Slight improvement. TIR: 39% very high 30% high 31% in range 0% low or very low avmg/dl GMI: 8.8% std dev: 68mg/dl variation: 29.5% Last TIR: 48% very high 27% high 25% in range 0% low or very low avmg/dl GMI: 9.3% std dev: 73mg/dl variation: 29.3% Diabetes Medications: 2.5mg Glipizide 1000mg Metformin BID Pertinent Labs: HgA1c: >14% 11/2024 8.4% 02/2025 glucose 504 mg/dl 11/2024 Past Medical History: (Last Updated 11/26/24 @ 11:08 by Julia Garnett, [facility]) Hypertension Neuropathy Numbness and tingling of both feet Intervention: This participant was very receptive. Provided appropriate educational handouts. Discussed the following topics: Reducing DM complication risks Carb portions and moderation Balancing foods she enjoys and DM HgA1c, BG, and TIR goals Goals: Try lemon in water- in progress Drink sf beverages instead of juice- met Follow-up: ABHILASH MCCARTY follow-up prn per pt request. RD will check PCP note and labs in one month and connect with pt and family prn. Overall, from a nutrition stand point, it seems as though she has made the changes she is capable of at this time. If additional Dm meds are added or she needs additional support, this RD is happy to see her again. Erika Pereira RDN, LUL Certified Diabetes Care and Pot Puncher P: [phone] Thank you for this referral
== END ==
PROVIDERS: PCP Nurse Practitioner Family; Referring Provider Nurse Practitioner Family
DX: E11.42 Type 2 diabetes mellitus with diabetic polyneuropathy (principal); Z79.84 Long term (current) use of oral hypoglycemic drugs; Z71.3 Dietary counseling and surveillance
CPT/HCPCS: G0108

== ENCOUNTER → 2025-05-11 09:29 | Outpatient (CLI) | payer MEDICARE, SELFPAY ==
[2025-05-11 10:37] LABS: Hemoglobin A1C% w Est Avg Glu 7.9 % (4.0-6.0)
[2025-05-11 10:58] LABS: Blood Urea Nitrogen 18 mg/dL (7-17); Calcium 9.4 mg/dL (8.4-10.2); Carbon Dioxide 28 mmol/L (22-32); Chloride 104 mmol/L (98-107); Estimated Glomerular Filt Rate > 60 mL/min (>60); Glucose 171 mg/dL (70-99); HEMOLYSIS < 15 (0-50); Potassium 4.4 mmol/L (3.4-5.1); Sodium 139 mmol/L (137-145)
== END ==
PROVIDERS: PCP Nurse Practitioner Family; Referring Provider Nurse Practitioner Family; Visit Provider Nurse Practitioner Family
DX: E11.9 Type 2 diabetes mellitus without complications (principal); I10 Essential (primary) hypertension; M79.89 Other specified soft tissue disorders
CPT/HCPCS: 36415; 80048; 83036

== ENCOUNTER → 2025-08-27 08:44 | Outpatient (CLI) | payer MEDICARE, SELFPAY ==
[2025-08-27 10:02] LABS: Hemoglobin A1C% w Est Avg Glu 9.3 % (4.0-6.0)
== END ==
PROVIDERS: PCP Nurse Practitioner Family; Referring Provider Nurse Practitioner Family; Visit Provider Nurse Practitioner Family
DX: E11.9 Type 2 diabetes mellitus without complications (principal)
CPT/HCPCS: 36415; 83036